=== PATIENT | male | born 1975 | race Two or more races ===

== ENCOUNTER 2021-02-24 06:41 | Emergency (ER) | payer MEDICAID, OTHER ==
[~2021-02-24] VITALS: Ht 152.4 cm; Wt 70.3 kg
[2021-02-24 08:04] VITALS: BP 136/87
== END 2021-02-24 08:54 | disposition home or self-care (01) ==
LOC: ER 06:41 → EDBD 06:41 → ER 08:52
DX: S01.81XA Laceration without foreign body of other part of head, initial encounter (principal); W01.198A Fall on same level from slipping, tripping and stumbling with subsequent striking against other object, initial encounter; Y93.89 Activity, other specified; Y92.89 Other specified places as the place of occurrence of the external cause; Y99.8 Other external cause status
CPT/HCPCS: 12013; 70450

== ENCOUNTER 2021-03-09 15:07 | Emergency (ER) | payer MEDICAID ==
[~2021-03-09] VITALS: Ht 180.3 cm; Wt 59.0 kg
[2021-03-09 17:16] VITALS: BP 125/76
== END 2021-03-09 17:20 | disposition home or self-care (01) ==
LOC: ER 15:07
DX: S01.112D Laceration without foreign body of left eyelid and periocular area, subsequent encounter (principal); X58.XXXD Exposure to other specified factors, subsequent encounter